=== PATIENT | female | born 1965 | race Two or more races ===

== ENCOUNTER 2018-02-13 15:38 | Emergency (ER) | payer OTHER ==
[~2018-02-13] VITALS: Ht 157.5 cm; Wt 58.1 kg
[2018-02-13] MEDS ORDERED: FOSAMAX70 MG PO (15:58)
[2018-02-13] MEDS ORDERED: SYNTHROID112 MCG PO (15:58)
== END 2018-02-13 20:33 | disposition home or self-care (01) ==
LOC: ER 15:38
DX: K29.70 Gastritis, unspecified, without bleeding (principal)

== ENCOUNTER 2018-02-25 07:57 | Outpatient (CLI) | payer OTHER ==
[~2018-02-25 07:57] MED LIST: FOSAMAX70 MG PO; SYNTHROID112 MCG PO
== END 2018-02-25 08:03 | disposition home or self-care (01) ==
LOC: MAMO-SONO 07:57
DX: Z12.31 Encounter for screening mammogram for malignant neoplasm of breast (principal); C50.911 Malignant neoplasm of unspecified site of right female breast; C50.912 Malignant neoplasm of unspecified site of left female breast

== ENCOUNTER 2018-08-18 07:41 | Outpatient (CLI) | payer OTHER | END 2018-08-18 07:49 | disposition home or self-care (01) | LOC: TOM 07:41 | DX: C76.0 Malignant neoplasm of head, face and neck (principal); H53.9 Unspecified visual disturbance ==

== ENCOUNTER 2022-10-26 18:48 | Emergency (ER) | payer OTHER ==
[~2022-10-26] VITALS: Ht 157.5 cm; Wt 59.0 kg
== END 2022-10-26 22:35 | disposition home or self-care (01) ==
LOC: ER 18:48
DX: S81.812A Laceration without foreign body, left lower leg, initial encounter (principal); W45.8XXA Other foreign body or object entering through skin, initial encounter; Y93.9 Activity, unspecified; Y92.9 Unspecified place or not applicable; Y99.9 Unspecified external cause status; Z88.0 Allergy status to penicillin